=== PATIENT | male | born 1975 | race Caucasian/White ===

== ENCOUNTER 2017-10-13 10:00 | Outpatient (RCR) | payer OTHER, SELFPAY ==
--- NOTE | 2017-09-03 10:27 | HP.PTEVAL ---
Patient's Visit Information MARCELINO MEEK is a 42 year old M referred to Physical Therapy by CACHORRO PATRICK with a diagnosis of BACK SURGERY. Date of Evaluation: 09/02/17 Physical Therapist: Logan Mixon, PT, - Visit Plan Frequency: 3x /Week Duration: 6 Weeks Plan: POSTURAL EX'S ,DLS,LE FLEXABLITY,LE PRE'S,LUMBAR ROM EXTENSION,GENERAL CONDITIONING - Subjective Subjective: This 42 y/o male presents to physical therapy with back surgery. Patient initially injuried lumbar 03/18/16 at work at [employer] throughing rubber pain with immediate pain. Dr Santos did MRI lumbar L4-5,L5-S1. Tried caudal injections didnt help. Patient had PT for 20 visits intilally helped but return light symtoms return left leg. Patient also had nerve conduction test. Then recommended Dr Duarte thus underwent s/p surgery lumbar disectomy 07/10/17 at [facility]. D/C next day. Then recommended PT. After surgery pain continued in hamstring/buttuck left side with parathesia/tingling. Symptoms worse with sitting,driving,bending ,lifting,walking ,standing extended distances.,. BOWEL/BLADDER -. Coughing/sneezing increases in lumbar. Pain affects sleeping,recliner. Pain affects ADL'S and return to job demands. SOCIAL: . VOCATION: [employer] - Pain Bilateral Back Pain Intensity (Out of 10): 4 Pain Intensity Range: 10 Left Lower Extremity Pain Intensity (Out of 10): 6 Pain Intensity Range: 10 Comment: hams/buttuck - Objective POSTURE: reduce lordosis. GAIT: mild foward posture ,reciprocal pattern. NEURO: c/o parathesia/tingling ,reflexes L3-4,L4-5,L5-S1 2/3,MYTOMES. PALPATION: mild tender paraspinals. SYMMTRIES: align. MMT: quad/hams/hip/ankle/great toe extensor 4/5. LUMBAR ROM: flexion min/mod loss,extension min loss,side glides min loss. FLEXABLITY: hams min/mod tight with + ANR left - Special Tests L/S Slump test left side: Positive L/S Slump test right side: Negative L/S Left Straight Leg Raise: Positive L/S Right Straight Leg Raise: Negative - Goals Goal 1:: Independant with HEP Goal Time Frame: 6-8 Weeks Goal 2:: Independant with posture/body mechanics Goal Time Frame: 6-8 Weeks Goal 3:: Decrease left lumbar buttuck/hams symptoms by 50% or greater to improve function with ADL'S and job demands Goal Time Frame: 6-8 Weeks Goal 4:: Improve lumbar ROM to WFL for function of recovery Goal Time Frame: 6-8 Weeks Goal 5:: Patient be able to perform ADL'S and reurn to job demands with min limiation Goal Time Frame: 6-8 Weeks - Rehabilitation Potential Physical Therapy Diagnosis: This patient underwent s/p lumbar disectomy 07/10/18 with pain ,decrease lumbar ROM,decrease core strength ,flexablity and function of recovery to RTW and housework tasks. Rehabilitation Potential: Good - Anticipated Interventions Patient/Client Instruction: Educate patient on: Condition, Plan of Care For the Purpose of:: To decrease pain, To increase ROM, To improve muscle performance and motor function, To increase tolerance to activity/condition/position, To improve performance and independence with ADL's, To improve ability of physical actions for home/community/work/leisure, To improve health of tissue, To decrease soft tissue restriction, To increase flexibility/ROM, To improve health and function, To prevent re-injury, To improve ability to perform tasks related to life management Therapeutic Exercise to Include: Strength training, Endurance training, Body mechanics, Postural training, Flexibilty training, Dynamic Lumbar Stabilization, Felipe Exercises For the Purpose of:: To decrease pain, To increase ROM, To improve muscle performance and motor function, To improve ability to perform ADL's, To increase tolerance to activity/condition/position, To improve performance and independence with ADL's, To improve ability of physical actions for home/community/work/leisure, To improve health of tissue, To decrease soft tissue restriction, To increase flexibility/ROM, To improve health and function, To improve ability to perform tasks related to life management IF ES: Yes Cryotherapy (ice pack, ice massage): Yes Thermo therapy (hot pack): Yes Ultrasound (thermal/non thermal): Yes For the Purpose of:: To decrease pain, To increase ROM, To improve nutrient delivery to tissue, To increase oxygenation perfusion, To improve health of tissue, To decrease soft tissue restriction Thank you for the opportunity to evaluate your patient. For Medicare and Medicare HMO plans, please review the plan of care and approve it. It will need to be FAXED BACK to us at [phone] for Medicare purposes. Please let me know if there are questions or concerns regarding this plan of care. Physician Signature: Date:
--- NOTE | 2017-11-12 08:25 | HP.PTDCNRP_ITS ---
HP - Discharge Summary (1) - Patient Information MARCELINO MEEK was seen in my office for initial evaluation on 09/02/17. The following Plan of Care was established for this patient: Initial Frequency: 3x /Week Initial Duration: 6 Weeks - Anticipated Interventions Patient/Client Instruction: Educate patient on: Condition, Plan of Care For the Purpose of:: To decrease pain, To increase ROM, To improve muscle performance and motor function, To increase tolerance to activity/condition/ position, To improve performance and independence with ADL's, To improve ability of physical actions for home/community/work/leisure, To improve health of tissue, To decrease soft tissue restriction, To increase flexibility/ROM, To improve health and function, To prevent re-injury, To improve ability to perform tasks related to life management Therapeutic Exercise to Include: Strength training, Endurance training, Body mechanics, Postural training, Flexibilty training, Dynamic Lumbar Stabilization , Felipe Exercises For the Purpose of:: To decrease pain, To increase ROM, To improve muscle performance and motor function, To improve ability to perform ADL's, To increase tolerance to activity/condition/position, To improve performance and independence with ADL's, To improve ability of physical actions for home/ community/work/leisure, To improve health of tissue, To decrease soft tissue restriction, To increase flexibility/ROM, To improve health and function, To improve ability to perform tasks related to life management IF ES: Yes Cryotherapy (ice pack, ice massage): Yes Thermo therapy (hot pack): Yes Ultrasound (thermal/non thermal): Yes For the Purpose of:: To decrease pain, To increase ROM, To improve nutrient delivery to tissue, To increase oxygenation perfusion, To improve health of tissue, To decrease soft tissue restriction This patient was last seen in our office 10/13/17. Pertinent comments regarding their Physical therapy will appear below: Patient seen for PT for lumbar disectomy for 14 sessions. Patient PT focused on DLS ,postural ex's,ROM,flexality conditioning. Patient did well 95% better , lumbar ROM WFL,BLE strength 5/5 . Thus is d/c to RTW. At this point I will be discontinuing this patient from physical therapy. I would be happy to see this patient again in the future if found appropriate by the physician. Thank you! Logan Mixon, PT,
== END 2017-10-13 19:00 ==
LOC: PT 10:00
DX: S33.5XXA Sprain of ligaments of lumbar spine, initial encounter (principal); Z98.890 Other specified postprocedural states
CPT/HCPCS: 97110; 97162

== ENCOUNTER 2025-08-16 18:39 | Emergency (ER) | payer OTHER, SELFPAY ==
[2025-08-16 18:42] VITALS: BP 135/91; PULSE 88; RESP 18; TEMP 36.4; O2SAT 98; BMI 20.6
--- NOTE | 2025-08-16 18:54 | EX.ED.DYSGE1 ---
HPI History of Present Illness Chief Complaint: Head Injury Narrative Narrative: Patient is a 50-year-old male with no known significant past medical history no daily medications who presents to the emergency department chief complaint of cut to his forehead. 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 He states he did not pass out. Patient notes that he bent over and then stood up and noted that he had blood running down therefore he applied pressure and was concerned that he may need stitches therefore he came here to be further evaluated. Patient states that his tetanus shot was updated about 3 years ago. PFSH PFSH Medical History no medical history Allergy/AdvReac Type Severity Reaction Status Date / Time penicillin Allergy Unknown Verified 08/16/25 18:43 Family History no significant family his Surgical History no surgical history Social History (Updated 08/16/25 @ 18:58 by Yolanda Castillo) current occupational status: employed Smoking Status: Current every day smoker tobacco type: cigarettes ROS ROS ED ROS Narrative Constitutional: Denies a headache but states that his forehead is tender to touch Eyes: Denies double vision blurry vision denies any eye pain Cardiovascular: Denies chest pain Respiratory: Denies shortness of breath Neurological: Denies any numbness, weakness, tingling Skin: Complains of cut to right forehead as noted above EXAM Physical Exam Narrative Exam Narrative: General: Patient was sitting at bedside resting comfortably did not appear to be in acute distress Head: Patient has a small will 0.5 to 1 cm laceration above his right eyebrow no active bleeding noted, normocephalic Eyes: PERRL bilaterally, EOMI bilaterally, no conjunctival injection noted Neck: Soft, supple, trachea midline Cardiovascular: Regular rate and rhythm Neurological: Patient following commands knew that he was at [facility] years 2024 NIH of 0 GCS 15 Skin: See head Const Vital Signs: 08/16/25 18:42 08/16/25 19:03 Temperature 97.6 F L Temperature Source Temporal Pulse Rate 88 Respiratory Rate 18 Respiratory Effort Normal Non-Labored Respiratory Depth Normal Respiratory Pattern Normal Blood Pressure 135/91 H Blood Pressure Mean 105 Pulse Ox 98 Oxygen Delivery Method Room Air Room Air MDM MDM MDM Narrative Medical decision making narrative: Patient is a 50-year-old male who presents to the emergency department chief complaint forehead laceration. On the differential diagnose includes but not limited to forehead laceration, forehead abrasion. Patient's tetanus shot is updated. Patient had a laceration repaired in the emergency department tolerated this well with no complication see procedure note for separate details. He is advised to have these removed in approximately 5 days and to return with worsening symptoms or any concerns. He is agreeable splenocolic concerns answered is discharged home in stable condition. Procedure note Procedure name: Laceration repair Indication: Reduce risk of infection Location: Above right eyebrow approximately 1 cm in length Preprocedure diagnosis: Laceration Postprocedure diagnosis: Repaired laceration Informed consent was obtained prior to procedure started. Procedure: The appropriate timeout was taken. The area was prepped and draped in usual sterile fashion. Local anesthesia was achieved using 1 cc of lidocaine 1% without epinephrine. Wound was copiously irrigated. 3 5-0 Ethilon interrupted sutures were placed. Estimated blood loss was less than 0.5 mL. Dressing was applied to the area and anticipatory guidance, as well as standard postprocedure care was explained. Return precautions are given. Patient tolerated procedure well without any complications. Follow-up visit for suture removal and evaluation of laceration. Discharge Plan Triage Chief Complaint: Head Injury ED Provider: Oseas Morataya Dx/Rx/DC Orders Clinical Impression: Forehead laceration, Encounter for medical screening examination, Closed head injury without loss of consciousness Primary Care Provider: Care Physician,No Primary Referrals: Corporate,Care [Group of Physicians, Medical] Memo Glez MD [Med Staff - Active Staff, Family Practice] [facility] [address] Doctor,Out of [Non-Staff, Medical] Activity Restrictions/Additional Instructions: Have your sutures removed in about 5 days. Watch out for signs of infection such as surrounding redness, pus coming from this if this is to occur follow-up with the your doctor they referred to or come back to the emergency department. You may shower do not scrub your sutures do not soak these sutures. Rotate Tylenol and I Profen [id number] for pain control when you do this you can take something every 3 hours pain max dose Tylenol in 24 hours 4000 mg max dose of ibuprofen in 24 hours 3200 mg. Print Language: Burmese Disposition Disposition: Home, Self Care
[2025-08-16] MEDS: Lidocaine 1% (20 ml mdv) 20 ML Vial 10 ML INFILT (19:10)
--- OUTSIDE RECORDS SUMMARY | 2025-08-16 19:22 | XMS RPT_ITS | CCD ---
Author Organization [facility] Care Team Providers Care Production Support Specialist Name Role Phone Willie Vanessa Unavailable Unavailable JOVITA JAMES Unavailable Unavailable DOCTOR, [place] OF [place]OWN Unavailable Unavailable JOVITA JAMES Unavailable Unavailable JOVITA JAMES Unavailable Unavailable DOCTOR, OUT OF TOWN Unavailable Unavailable MARIS TELLO Admitting Unavailable MARIS TELLO Attending Unavailable AA NO PCP, NO PCP Primary Care Unavailable PROVIDER, UNKNOWN Attending Unavailable PROVIDER, UNKNOWN Admitting Unavailable PATIENT, SELF Referring Unavailable Allergies Allergy Classification Reported Allergen(s) Allergy Type Date of Onset Reaction(s) Facility (2 sources) penicillin Drug Allergy 7 Unknown [facility] Repository (1 source) Penicillins; Translations: [PENICILLINS] Propensity to adverse reactions to drug (disorder) 7 [facility] Problems Active Problems Problem Classification Problem Date Documented Date Episodic/Chronic Spondylosis; intervertebral disc disorders; other back problems (2 sources) Radiculopathy, site unspecified; Translations: [Dorsalgia, unspecified] Onset: 05-06-2017 Episodic Sprains and strains (1 source) Sprain of ligaments of lumbar spine, initial encounter; Translations: [SPRAIN LIGAMENTS LUMBAR SPN INITIAL] Onset: 09-30-2019 Episodic Unclassified (1 source) Other specified postprocedural states; Translations: [Z98.890 - Other specified postprocedural states] Onset: 11-13-2017 Past or Other Problems Problem Classification Problem Date Documented Da te Episodic/Chronic Unclassified (1 source) Tobacco use; Translations: [TOBACCO USE] Onset: 05-06-2017 Episodic Results Test Name Value Interpretation Reference Range Facility Inital Evaluation (1) - PTon 09-05-2017 Inital Evaluation (1) - [facility] [id number] [facility], [place] [phone] [phone] FaxREHABILITATION SERVICESINITIAL EVALUATIONMR#: [id number] Acct: [id number]: MARCELINO MEEK Rep #: [id number]: 1975 42 From: Logan Mixon PT, Cert. MDT, OCSReferring : Status: REG RCRInsurance: ANTHEMSELF PAY INSURANCEPatient's Visit InformationBRARoberto MEEK is a 42 year old M referred to Physical Therapy by CACHORRO GASPAR with a diagnosis of BACK SURGERY.Date of Evaluation: 09/02/17Physical Therapist: Logan Mixon PT,- Visit PlanFrequency: 3x /WeekDuration: 6 WeeksPlan: POSTURAL EX'S ,DLS,LE FLEXABLITY,LE PRE'S,LUMBAR ROM EXTENSION,GENERAL CONDITIONING- SubjectiveSubjective: This 42 y/o male presents to physical therapy with back surgery. Patient initiallyinjuried lumbar 03/18/16 at work at [employer] throughing rubber pain with immediate pain. Catherine did MRI lumbar L4-5,L5-S1. Tried caudal injections didnt help. Patient had PT for 20visits intilally helped but return light symtoms return left leg. Patient also had nerveconduction test. Then recommended Dr Duarte thus underwent s/p surgery lumbar cugnuvnlq02/16/17 at [facility]. D/C next day. Then recommended PT. After surgery pain continuedin hamstring/buttuck left side with parathesia/tingling. Symptoms worse withsitting,driving,bendin g ,lifting,walking ,standing extended distances.,. BOWEL/BLADDER -.Coughing/sneezing increases in lumbar. Pain affects sleeping,recliner. Pain affects ADL'S andreturn to job demands. SOCIAL: . VOCATION: [employer]- Pain Bilateral BackPain Intensity (Out of 10): 4Pain Intensity Range: 10 Left Lower ExtremityPain Intensity (Out of 10): 6Pain Intensity Range: 10Comment: hams/buttuck- ObjectivePOSTURE: reduce lordosis. GAIT: mild foward posture ,reciprocal pattern. NEURO: c/oparathesia/tingling ,reflexes L3-4,L4-5,L5-S1 2/3,MYTOMES. PALPATION: mild tender paraspinals.SYMMTRIES: align. MMT: quad/hams/hip/ankle/great toe extensor 4/5. LUMBAR ROM: flexionmin/mod loss,extension min loss,side glides min loss. FLEXABLITY: hams min/mod tight with +ANR left- Special TestsL/S Slump test left side: PositiveL/S Slump test right side: NegativeL/S Left Straight Leg Raise: PositiveL/S Right Straight Leg Raise: Negative- GoalsGoal 1:: Independant with HEPGoal Time Frame: 6-8 WeeksGoal 2:: Independant with posture/body mechanicsGoal Time Frame: 6-8 WeeksGoal 3:: Decrease left lumbar buttuck/hams symptoms by 50% or greater to improve function withADL'S and job demandsGoal Time Frame: 6-8 WeeksGoal 4:: Improve lumbar ROM to WFL for function of recoveryGoal Time Frame: 6-8 WeeksGoal 5:: Patient be able to perform ADL'S and reurn to job demands with min limiationGoal Time Frame: 6-8 Weeks- Rehabilitation PotentialPhysical Therapy Diagnosis: This patient underwent s/p lumbar disectomy 07/10/18 with pain,decrease lumbar ROM,decrease core strength ,flexablity and function of recovery to RTW andhousework tasks.Rehabilitation Potential: Good- Anticipated InterventionsPatient/Clien t Instruction: Educate patient on: Condition, Plan of CareFor the Purpose of:: To decrease pain, To increase ROM, To improve muscle performance and motorfunction, To increase tolerance to activity/condition/positio n, To improve performance andindependence with ADL's, To improve ability of physical actions forhome/community/work/lei sure, To improve health of tissue, To decrease soft tissue restriction,To increase flexibility/ROM, To improve health and function, To prevent re-injury, To improveability to perform tasks related to life managementTherapeutic Exercise to Include: Strength training, Endurance training, Body mechanics,Postural training, Flexibilty training, Dynamic Lumbar Stabilization, Felipe ExercisesFor the Purpose of:: To decrease pain, To increase ROM, To improve muscle performance and motorfunction, To improve ability to perform ADL's, To increase tolerance toactivity/condition/posit ion, To improve performance and independence with ADL's, To improveability of physical actions for home/community/work/leisur e, To improve health of tissue, Todecrease soft tissue restriction, To increase flexibility/ROM, To improve health and function,To improve ability to perform tasks related to life managementIF ES: YesCryotherapy (ice pack, ice massage): YesThermo therapy (hot pack): YesUltrasound (thermal/non thermal): YesFor the Purpose of:: To decrease pain, To increase ROM, To improve nutrient delivery to tissue,To increase oxygenation perfusion, To improve health of tissue, To decrease soft tissuerestrictionThank you for the opportunity to evaluate your patient.For Medicare and Medicare HMO plans, please review the plan of care and approve it.It will need to be FAXED BACK to us at [phone] for Medicare purposes.Please let me know if there are questions or concerns regarding this plan of care.Physician Signature: Date: 09/05/17 1035CC: OUT OF TOWN DOCTOR DT: 09/03/17JLASignedFor Medicare only, by signing this I certify the plan of care. Physic ians Signature Date Normal [facility] Discharge Instructionon 03-26 [facility]charge [facility] [id number] [place] [address]Xzjzhiraz Ikknpajrzqt63/20/17 1249MR#: [id number] Acct: [id number]: MARCELINO MEEK Rep #: [id number]: 1975 41 From: Willie Vanessa MDPCP: Chidi Linn MD Status: DEP ERED Disposition- Plan for ED Patient:Chief Complaint: BackInstructions: ED SciaticaPrescriptions:Meth ylPREDNISolone DosePak [Medrol DosePak] 4 mg PO UD #1 boxReferrals:Chidi Linn MD [Primary Care Provider] -What to do if you have ProblemsFor any increased pain, shortness of breath, bleeding, nausea or vomiting, chest pain, or anyunexpected problems, contact your Primary Care Provider. Call [facility] ([phone])or report to the closest Emergency Room.Call 911 if necessary.04/13/17 1533 Date Willie Vanessa [facility] Signature (If Indicated): Date CC: Chidi Linn MD Normal [facility] Emergency Department Summary on 04-13-2017 Emergency Department [facility] [id number] [place], [place] [address]Kssuprhwg Department Gvnewbm49/20/17 1247MR#: [id number] Acct: [id number]: MARCELINO MEEK Lazaro Rep #: [id number]: 1975 41 From: Willie Vanessa MDPCP: Chidi Linn MD Status: DEP ER- ER Visit SummaryDate of Service: 04/13/17Chief Complaint: Back painHistory of Present Illness: The patient is a 41 M with a history of lower back pain andherniated disks. Over the past 2 days he has had increasing left leg pain. The pain radiatesdown the back of his leg and feels like burning. He denies any new injuries. Denies any newsymptoms beyond this. Denies bowel or bladder symptoms. Denies fevers. Patient is a smoker.Denies IV drug abuse. Denies immune compromise.Physical Examination: Blood pressure 153/111. Otherwise vitals normal and patient is afebrile.Appears in no acute distress. Alert and oriented. Heart regular. Abdomen soft andnontender. Her spine is diffusely tender to palpation with light touch. Hips good range ofmotion. Straight leg raise positive for increasing burning paresthesias in the left leg. Theremainder of his neurologic exam is unremarkable. No saddle anesthesias. Good strength andsensation in all distributions. Pulses strong and equal distally.Test Results: No emergent tests are indicated.Emergency Department Course and Treatment: Patient is already on anti-inflammatories,narcot ics, gabapentin, and muscle relaxers. This is consistent with a radiculopathy. Likelyrelated to his herniated disks. There is no indication for emergent diagnostic testing. Hewas treated with a Medrol Dosepak. Follow-up with his specialists. Return for any new orworsening symptoms.Treatment Plan: As aboveDisposition: Discharge homeImpression: 1. Left leg radiculopathyED Disposition- Plan for ED Patient:Chief Complaint: BackReferrals:Haim Linn MD [Primary Care Provider] -What to do if you have ProblemsFor any increased pain, shortness of breath, bleeding, nausea or vomiting, chest pain, or anyunexpected problems, contact your Primary Care Provider. Call [facility] ([phone])or report to the closest Emergency Room.Call 911 if necessary.04/13/17 1537 Date Willie Vanessa [facility] Signature (If Indicated): Date CC: Chidi Linn MD Normal [facility] Encounters Encounter Date Encounter Type Care Provider Facility Start: 11-10-2019 End: 11-10-2019 ambulatory UNKNOWN PROVIDER Facility:[facility] Start: 05-31-2019 End: 06-01-2019 Patient encounter procedure MARIS Faustin [facility] Start: 10-13-2017 End: 10-13-2017 Ambulatory JOVITA Facility:[facility] Start: 04-13-2017 End: 04-13-2017 Emergency department patient visit Willie Vanessa Facility:[facility] Procedures Date Procedure Procedure Detail Performing Clinician Start: 11-10-2019 PM UNKNOWN [place] [facility] Payers Date Payer Category Payer Unknown [id number] 2016 Unknown [id number] 1975 Unknown [id number] 1975 Unknown [id number] 1959 Unknown [id number] Unknown [id number] Summary Purpose Family History No Family History Records FoundNo Family History Records FoundNo Family History Records Found Advance Directives No Advanced Directives Records FoundNo Advanced Directives Records FoundNo Advanced Directives Records Found Additional Source Comments (unrecognized sect ion and content) No Status Records FoundNo Status Records FoundNo Status Records Found INFORMATION SOURCE (unrecogn ized section and content) DATE CREATED AUTHOR 02/13/[address] [facility] DATE CREATED AUTHOR AUTHOR'S ORGANIZ ATION 09/30/2019 [facility] DATE CREATED AUTHOR AUTHOR'S ORGANIZ ATION 10/12/2021 [facility] FOR RECORDS PERTAINING TO PATIENTS WHO ARE OR HAVE BEEN ENROLLED IN A CHEMICAL DEPENDENCY/SUBSTANCEABUSE PROGRAM, SOME INFORMATION MAY BE OMITTED. This clinical summary was aggregated from multiple sources. Caution should be exercised in using it in the provision of clinical care. This summary normalizes information from multiple sources, and as a consequence, information in this document may materially change the coding, format and clinical context of patient data. In addition, data may be omitted in some cases. CLINICAL DECISIONS SHOULD BE BASED ON THE PRIMARY CLINICAL RECORDS. [facility] [employer] [facility] provides no warranty or guarantee of the accuracy or completeness of information in this document.
--- NOTE | 2025-08-16 19:58 | CM.ED ---
Social work Reason for referral: no PCP Referral source: case find SW entered patient's room, introducing self and role at [facility]. Patient confirmed lacking a PCP due to patient's doctor retiring. Patient accepted [facility] Provider Directory and Krysten Madden information. Patient denied further needs at this time. Connie Vaughn, ANIMAL RIDE ATTENDANT, P[employer] ASSEMBLER
[2025-08-16 20:25] VITALS: BP 125/85; PULSE 68; RESP 16; TEMP 36.6; O2SAT 98
== END 2025-08-16 20:30 | disposition home or self-care (01) ==
PROVIDERS: Emergency Provider Emergency Medicine; Visit Provider Emergency Medicine
DX: S01.81XA Laceration without foreign body of other part of head, initial encounter (principal); F17.210 Nicotine dependence, cigarettes, uncomplicated; Z13.9 Encounter for screening, unspecified; W22.8XXA Striking against or struck by other objects, initial encounter; Y99.0 Civilian activity done for income or pay
CPT/HCPCS: 12011; 99282; A4216